=== PATIENT | male | born 1960 | race Caucasian/White ===

== ENCOUNTER 2023-01-31 08:21 | Inpatient (IN) | payer OTHER, MEDICAID ==
[~2023-01-31] VITALS: Ht 157.5 cm; Wt 65.8 kg
[2023-01-31 08:59] VITALS: BP 170/88; PULSE 71; RESP 20; TEMP 98.1; O2SAT 94
[2023-01-31 09:54] LABS: BASOPHILS # (AUTO) 0.1 K/uL (0.00-0.22); BASOPHILS % (AUTO) 1.3 % (0.0-2.0); EOSINOPHILS % (AUTO) 0.4 % (0.0-4.0); HEMATOCRIT 23.7 % (36-52); HEMOGLOBIN 7.9 g/dL (12.0-18.0); LYMPHOCYTES # (AUTO) 0.8 K/uL (2.0-11.5); LYMPHOCYTES % (AUTO) 11.3 % (20.5-51.1); MEAN CORPUSCULAR HEMOGLOBIN 31 pg (27-31); MEAN CORPUSCULAR HGB CONC 33 g/dL (33-37); MEAN CORPUSCULAR VOLUME 92.2 fL (80-94); MONOCYTES # (AUTO) 0.4 K/uL (0.8-1.0); MONOCYTES % (AUTO) 5.4 % (1.7-9.3); NEUTROPHILS % (AUTO) 81.6 % (42.2-75.2); PLATELET COUNT (AUTO) 229 K/uL (140-450); RED BLOOD CELL COUNT(AUTO) 2.57 MIL/uL (4.20-6.10); RED CELL DISTRIBUTION WIDTH 16.4 % (11.6-13.7); WHITE BLOOD COUNT (AUTO) 7.4 K/uL (4.8-10.8)
[2023-01-31 10:14] LABS: ALBUMIN 3.1 g/dL (3.4-5.0); ANION GAP 14.9 (8-16); CARBON DIOXIDE 31.5 mmol/L (21-32); POTASSIUM 4.4 mmol/L (3.5-5.1); TOTAL BILIRUBIN 0.8 mg/dL (0.0-1.0); TOTAL PROTEIN, SERUM 6.6 g/dL (6.4-8.2)
[2023-01-31 10:15] LABS: CREATININE 8.6 mg/dL (0.6-1.3)
[2023-01-31 10:19] LABS: APPEARANCE,URINE CLEAR (CLEAR); BILIRUBIN,URINE NEGATIVE (NEGATIVE); BLOOD, URINE TRACE-I (NEGATIVE); COLOR,URINE YELLOW (YELLOW); LEUKOCYTE ESTERASE ,URINE TRACE (NEGATIVE); NITRITE, URINE NEGATIVE (NEGATIVE); PH,URINE 8.5 (5.0-9.0); PROTEIN,URINE 2+ (NEGATIVE); UGLUCOSE 2+ (NEGATIVE); UROBILINOGEN,URINE 0.2 EU/dL (0.2 - 1)
[2023-01-31 10:30] LABS: BACTERIA,URINE FEW /HPF (None Seen); RBC,URINE 0-5 /HPF (0-5); SQUAMOUS EPITHELIAL CELL,UR 0-3 (FEW) /LPF (0-3 (FEW))
[2023-01-31 10:46] LABS: FLU A ANTIGEN negative (NEGATIVE); FLU B ANTIGEN NEGATIVE (NEGATIVE)
[2023-01-31] MEDS ORDERED: AZITHROMYCIN 500 MG in DEXTROSE 5% 250 ML IV ONE (11:45)
[2023-01-31] MEDS ORDERED: DILTIAZEM 30 MG TAB PO ONE (11:45)
[2023-01-31] MEDS ORDERED: cefTRIAXone 1,000 MG VIAL ONE (11:57)
[2023-01-31] MEDS ORDERED: AZITHROMYCIN 500 MG INJ VIAL IV ONE (11:57)
[2023-01-31] MEDS ORDERED: MAG SULF 2000 MG/WATER PREMIX 50 ML IV PRN (15:25)
[2023-01-31] MEDS ORDERED: LORazepam 2 MG/ML VIAL IVP PRN (15:25)
[2023-01-31] MEDS ORDERED: MORPHINE SULFATE 2 MG/ML SYR IVP PRN (15:25)
[2023-01-31] MEDS ORDERED: ZOLPIDEM 10 MG TAB PO PRN (15:25)
[2023-01-31] MEDS ORDERED: POTASSIUM CHLORIDE 10 MEQ TABER PO PRN (15:25)
[2023-01-31] MEDS ORDERED: ONDANSETRON 4 MG/2 ML VIAL IVP PRN (15:25)
[2023-01-31] MEDS ORDERED: DOCUSATE SODIUM 100 MG GELCAP PO PRN (15:25)
[2023-01-31] MEDS ORDERED: ACETAMINOPHEN 325 MG TAB PO PRN (15:25)
[2023-01-31] MEDS: NIFEdipine 60 MG TABER PO SCH (19:22)
[2023-01-31 20:37] VITALS: BP 200/97; PULSE 81; RESP 21; TEMP 98.6; O2SAT 93
[2023-01-31] MEDS: METOPROLOL 25 MG TAB PO SCH (21:00)
[2023-02-01] VITALS (8 sets, daily range): BP systolic 115–181; BP diastolic 56–87; PULSE 58–76; RESP 16–21; TEMP 97.5–98.4; O2SAT 95–100
[2023-02-01] MEDS: CLONIDINE HYDROCHLORIDE 0.1 MG TAB PO PRN (00:40)
[2023-02-01 07:13] LABS: BASOPHILS % (AUTO) 0.6 % (0.0-2.0); EOSINOPHILS # (AUTO) 0.1 K/uL (0-0.4); EOSINOPHILS % (AUTO) 1.9 % (0.0-4.0); HEMATOCRIT 22.2 % (36-52); HEMOGLOBIN 7.4 g/dL (12.0-18.0); LYMPHOCYTES # (AUTO) 0.9 K/uL (2.0-11.5); LYMPHOCYTES % (AUTO) 15.8 % (20.5-51.1); MEAN CORPUSCULAR HEMOGLOBIN 31 pg (27-31); MEAN CORPUSCULAR HGB CONC 33 g/dL (33-37); MEAN CORPUSCULAR VOLUME 92.5 fL (80-94); MONOCYTES # (AUTO) 0.5 K/uL (0.8-1.0); MONOCYTES % (AUTO) 8.4 % (1.7-9.3); NEUTROPHILS # (AUTO) 4.2 K/uL (1.8-7.7); NEUTROPHILS % (AUTO) 73.3 % (42.2-75.2); PLATELET COUNT (AUTO) 207 K/uL (140-450); RED BLOOD CELL COUNT(AUTO) 2.41 MIL/uL (4.20-6.10); RED CELL DISTRIBUTION WIDTH 16.3 % (11.6-13.7); WHITE BLOOD COUNT (AUTO) 5.8 K/uL (4.8-10.8)
[2023-02-01] MEDS: NIFEdipine 60 MG TABER PO SCH (08:29)
[2023-02-01] MEDS: METOPROLOL 25 MG TAB PO SCH ×2 (08:30→21:05)
[2023-02-01 08:55] LABS: ANION GAP 14.2 (8-16); CALCIUM 8.9 mg/dL (8.5-10.1); CARBON DIOXIDE 29.8 mmol/L (21-32)
[2023-02-01 08:58] LABS: CREATININE 5.7 mg/dL (0.6-1.3)
[2023-02-02] VITALS (7 sets, daily range): BP systolic 127–186; BP diastolic 61–86; PULSE 62–77; RESP 17–20; TEMP 97.5–98.4; O2SAT 95–100
[2023-02-02 07:07] LABS: BASOPHILS # (AUTO) 0.1 K/uL (0.00-0.22); BASOPHILS % (AUTO) 1.1 % (0.0-2.0); EOSINOPHILS # (AUTO) 0.2 K/uL (0-0.4); EOSINOPHILS % (AUTO) 4.1 % (0.0-4.0); HEMOGLOBIN 7.7 g/dL (12.0-18.0); LYMPHOCYTES # (AUTO) 1.1 K/uL (2.0-11.5); LYMPHOCYTES % (AUTO) 21.9 % (20.5-51.1); MEAN CORPUSCULAR HEMOGLOBIN 30 pg (27-31); MEAN CORPUSCULAR HGB CONC 33 g/dL (33-37); MEAN CORPUSCULAR VOLUME 90.8 fL (80-94); MONOCYTES # (AUTO) 0.4 K/uL (0.8-1.0); MONOCYTES % (AUTO) 8.5 % (1.7-9.3); NEUTROPHILS # (AUTO) 3.3 K/uL (1.8-7.7); NEUTROPHILS % (AUTO) 64.4 % (42.2-75.2); PLATELET COUNT (AUTO) 247 K/uL (140-450); RED BLOOD CELL COUNT(AUTO) 2.53 MIL/uL (4.20-6.10); RED CELL DISTRIBUTION WIDTH 16.2 % (11.6-13.7); WHITE BLOOD COUNT (AUTO) 5.1 K/uL (4.8-10.8)
[2023-02-02 07:16] LABS: ANION GAP 16.7 (8-16); CALCIUM 8.6 mg/dL (8.5-10.1); CARBON DIOXIDE 27.4 mmol/L (21-32); POTASSIUM 4.1 mmol/L (3.5-5.1)
[2023-02-02 07:34] LABS: CREATININE 8.3 mg/dL (0.6-1.3)
[2023-02-02] MEDS: METOPROLOL 25 MG TAB PO SCH ×2 (09:05→21:17)
[2023-02-02] MEDS: NIFEdipine 60 MG TABER PO SCH (09:06)
[2023-02-02] MEDS: EPOETIN ALFA 10,000 UNITS/ML VIAL IV SCH ×2 (15:42→15:53)
[2023-02-02] MEDS ORDERED: EPOETIN ALFA-EPBX 4,000 UNITS/ML VIAL SUBQ SCH (16:00)
[2023-02-02] MEDS: CLONIDINE HYDROCHLORIDE 0.1 MG TAB PO PRN (23:59)
[2023-02-03] VITALS (7 sets, daily range): BP systolic 124–202; BP diastolic 67–91; PULSE 64–76; RESP 16–18; TEMP 97–98.2; O2SAT 95–99
[2023-02-03 06:27] LABS: BASOPHILS # (AUTO) 0.1 K/uL (0.00-0.22); BASOPHILS % (AUTO) 1.3 % (0.0-2.0); EOSINOPHILS # (AUTO) 0.2 K/uL (0-0.4); EOSINOPHILS % (AUTO) 3.8 % (0.0-4.0); HEMATOCRIT 22.7 % (36-52); HEMOGLOBIN 7.7 g/dL (12.0-18.0); LYMPHOCYTES # (AUTO) 1.3 K/uL (2.0-11.5); MEAN CORPUSCULAR HEMOGLOBIN 31 pg (27-31); MEAN CORPUSCULAR HGB CONC 34 g/dL (33-37); MEAN CORPUSCULAR VOLUME 90.7 fL (80-94); MONOCYTES # (AUTO) 0.4 K/uL (0.8-1.0); MONOCYTES % (AUTO) 6.8 % (1.7-9.3); NEUTROPHILS # (AUTO) 3.2 K/uL (1.8-7.7); NEUTROPHILS % (AUTO) 62.1 % (42.2-75.2); PLATELET COUNT (AUTO) 251 K/uL (140-450); RED CELL DISTRIBUTION WIDTH 16.1 % (11.6-13.7); WHITE BLOOD COUNT (AUTO) 5.1 K/uL (4.8-10.8)
[2023-02-03 07:02] LABS: ANION GAP 17.3 (8-16); CALCIUM 8.7 mg/dL (8.5-10.1); CARBON DIOXIDE 26.9 mmol/L (21-32); POTASSIUM 4.2 mmol/L (3.5-5.1)
[2023-02-03 07:18] LABS: CREATININE 10.7 mg/dL (0.6-1.3)
[2023-02-03] MEDS: NIFEdipine 60 MG TABER PO SCH (09:00)
[2023-02-03] MEDS: METOPROLOL 25 MG TAB PO SCH (09:00)
[2023-02-03] MEDS: EPOETIN ALFA 10,000 UNITS/ML VIAL IV SCH (12:33)
[2023-02-03] MEDS ORDERED: ASPI-1856 PO (17:17)
[2023-02-03] MEDS ORDERED: DOCU-299 PO (17:17)
[2023-02-03] MEDS ORDERED: CARV12.52 PO (17:17)
[2023-02-03] MEDS ORDERED: ATOR20TA40 PO (17:17)
[2023-02-03] MEDS ORDERED: LOSA-270 PO (17:17)
[2023-02-03] MEDS ORDERED: LOSARTAN 50 MG TAB PO SCH (21:00)
[2023-02-03] MEDS ORDERED: carvediloL 12.5 MG TAB PO SCH (21:00)
[2023-02-04] MEDS ORDERED: ATORVASTATIN 20 MG TAB PO SCH (09:00)
[2023-02-04] MEDS ORDERED: ECOTRIN 81 MG TABEC PO SCH (09:00)
== END 2023-02-03 21:10 | disposition home or self-care (01) | DRG 193 ==
LOC: MED 08:21 → MTU 12:11
PROVIDERS: ADMIT General Practice; ATTEND General Practice
PROC: 5A1D70Z Performance of Urinary Filtration, Intermittent, Less than 6 Hours Per Day (ICD-10-PCS; principal; 2023-01-31)
PROC: 5A1D70Z Performance of Urinary Filtration, Intermittent, Less than 6 Hours Per Day (ICD-10-PCS; 2023-02-03)
DX: J18.9 Pneumonia, unspecified organism (principal); I50.23 Acute on chronic systolic (congestive) heart failure; J96.01 Acute respiratory failure with hypoxia; N18.6 End stage renal disease; I13.2 Hypertensive heart and chronic kidney disease with heart failure and with stage 5 chronic kidney disease, or end stage renal disease; N39.0 Urinary tract infection, site not specified; K21.9 Gastro-esophageal reflux disease without esophagitis; D63.1 Anemia in chronic kidney disease; Z20.822 Contact with and (suspected) exposure to COVID-19; D63.8 Anemia in other chronic diseases classified elsewhere; I25.10 Atherosclerotic heart disease of native coronary artery without angina pectoris; Z99.2 Dependence on renal dialysis; Z91.158 Patient's noncompliance with renal dialysis for other reason; I25.2 Old myocardial infarction; Z86.73 Personal history of transient ischemic attack (TIA), and cerebral infarction without residual deficits
CPT/HCPCS: 36415; 71045; 80048; 80053; 81001; 83036; 83605; 83735; 83880; 84484; 85025; 87040; 87070; 87086; 87205; 93005; 96365; 96367; 99285; J0456; J0696; J0885; J1644; Q0092; Q5106

== ENCOUNTER 2023-07-16 18:34 | Inpatient (IN) | payer OTHER ==
[~2023-07-16] VITALS: Ht 175.3 cm; Wt 102.1 kg
[~2023-07-16 18:34] MED LIST: ASPI-1856 PO; ATOR20TA40 PO; CARV12.52 PO; DOCU-299 PO; LOSA-270 PO
[2023-07-16 18:47] VITALS: BP 131/79; PULSE 84; RESP 18; TEMP 97.3; O2SAT 99
[2023-07-16 19:22] VITALS: O2SAT 95
[2023-07-16 20:12] LABS: BASOPHILS # (AUTO) 0.2 K/uL (0.00-0.22); BASOPHILS % (AUTO) 1.8 % (0.0-2.0); EOSINOPHILS # (AUTO) 0.3 K/uL (0-0.4); EOSINOPHILS % (AUTO) 2.9 % (0.0-4.0); HEMATOCRIT 40.4 % (36-52); HEMOGLOBIN 13.7 g/dL (12.0-18.0); LYMPHOCYTES # (AUTO) 2.4 K/uL (2.0-11.5); LYMPHOCYTES % (AUTO) 28.2 % (20.5-51.1); MEAN CORPUSCULAR HEMOGLOBIN 36 pg (27-31); MEAN CORPUSCULAR HGB CONC 34 g/dL (33-37); MEAN CORPUSCULAR VOLUME 104.3 fL (80-94); MONOCYTES # (AUTO) 0.9 K/uL (0.8-1.0); MONOCYTES % (AUTO) 11.1 % (1.7-9.3); NEUTROPHILS # (AUTO) 4.8 K/uL (1.8-7.7); PLATELET COUNT (AUTO) 294 K/uL (140-450); RED BLOOD CELL COUNT(AUTO) 3.87 MIL/uL (4.20-6.10); RED CELL DISTRIBUTION WIDTH 19.3 % (11.6-13.7); WHITE BLOOD COUNT (AUTO) 8.6 K/uL (4.8-10.8)
[2023-07-16 20:27] LABS: ANION GAP 27.8 (8-16); CALCIUM 10.3 mg/dL (8.5-10.1); CARBON DIOXIDE 20.5 mmol/L (21-32); POTASSIUM 4.3 mmol/L (3.5-5.1)
[2023-07-16 20:29] LABS: CREATININE 12.3 mg/dL (0.6-1.3)
[2023-07-16 20:30] LABS: INR 1.08 (0.8-1.2); PARTIAL THROMBOPLASTIN TIME 35.5 secs (22-35.6); PROTHROMBIN TIME 11.3 secs (10.8-13.4)
[2023-07-16 20:39] LABS: LACTIC ACID 0.7 mmol/L (0.4-2.0)
[2023-07-16 20:42] LABS: ALANINE AMINOTRANSFERASE 25 U/L (12-78); ALBUMIN 3.8 g/dL (3.4-5.0); ALKALINE PHOSPHATASE 82 U/L (50-136); ASPARTATE AMINOTRANSFERASE 29 U/L (15-37); BILIRUBIN,DIRECT 0.1 mg/dL (0.0-0.3); CREATINE KINASE, TOTAL 65 U/L (39-308); LIPASE 40 U/L (16-77); THYROID STIMULATING HORMONE 0.67 uIU/mL (0.34-3.74); TOTAL BILIRUBIN 0.4 mg/dL (0.0-1.0); TOTAL PROTEIN, SERUM 7.9 g/dL (6.4-8.2)
[2023-07-16] MEDS ORDERED: ACETAMINOPHEN 325 MG TAB PO PRN (21:40)
[2023-07-16] MEDS ORDERED: ALBUTEROL 0.083% 2.5 MG/3 ML NEBU INH PRN (21:40)
[2023-07-16] MEDS ORDERED: HYDROcodone/APAP 5/325 MG 1 TAB TAB PO PRN (21:40)
[2023-07-16] MEDS ORDERED: DOCUSATE SODIUM 100 MG GELCAP PO PRN (21:45)
[2023-07-16] MEDS ORDERED: FAMO-90 PO (22:22)
[2023-07-16] MEDS ORDERED: TENA20TA PO (22:22)
[2023-07-16] MEDS ORDERED: MULT-2171 PO (22:22)
[2023-07-16] MEDS ORDERED: CALC667T8 PO (22:22)
[2023-07-16] MEDS ORDERED: SENN-72 PO (22:22)
[2023-07-16] MEDS ORDERED: HYDR100T49 PO (22:22)
[2023-07-16] MEDS ORDERED: APIX5TAB PO (22:22)
[2023-07-16] MEDS ORDERED: METO100T14 PO (22:22)
[2023-07-16] MEDS ORDERED: OMEG100016 PO (22:22)
[2023-07-16 23:34] VITALS: PULSE 80
[2023-07-17] VITALS (9 sets, daily range): BP systolic 83–167; BP diastolic 54–88; PULSE 66–121; RESP 17–20; TEMP 96.4–97.6; O2SAT 97–100
[2023-07-17] MEDS: cefTRIAXone 1,000 MG VIAL ONE (00:11)
[2023-07-17] MEDS ORDERED: DEXTROSE 50% 50 ML SYR IVP PRN (05:30)
[2023-07-17] MEDS: BLOOD GLUCOSE MONITORING 1 DEV DEV FS SCH (07:25)
[2023-07-17] MEDS: LOSARTAN 50 MG TAB PO SCH (08:17)
[2023-07-17] MEDS: carvediloL 12.5 MG TAB PO SCH (08:17)
[2023-07-17] MEDS: ECOTRIN 81 MG TABEC PO SCH (08:17)
[2023-07-17] MEDS: ONDANSETRON 4 MG/2 ML VIAL IVP PRN (08:28)
[2023-07-17] MEDS: ALBUMIN HUMAN 25% 50 ML IV SCH (18:54)
[2023-07-17] MEDS: ATORVASTATIN 20 MG TAB PO SCH (20:32)
[2023-07-17] MEDS: MIDODRINE 5 MG TAB PO SCH (20:33)
[2023-07-17] MEDS ORDERED: MELATONIN 3 MG TAB PO PRN (22:20)
[2023-07-17] MEDS: MELATONIN 3 MG TAB PO PRN (23:01)
[2023-07-18] VITALS (8 sets, daily range): BP systolic 83–136; BP diastolic 41–88; PULSE 72–152; RESP 16–20; TEMP 97.1–98.3; O2SAT 95–100
[2023-07-18 05:22] LABS: BASOPHILS # (AUTO) 0.1 K/uL (0.00-0.22); EOSINOPHILS # (AUTO) 0.2 K/uL (0-0.4); EOSINOPHILS % (AUTO) 1.7 % (0.0-4.0); HEMATOCRIT 36.2 % (36-52); HEMOGLOBIN 12.3 g/dL (12.0-18.0); LYMPHOCYTES # (AUTO) 1.9 K/uL (2.0-11.5); LYMPHOCYTES % (AUTO) 20.1 % (20.5-51.1); MEAN CORPUSCULAR HEMOGLOBIN 36 pg (27-31); MEAN CORPUSCULAR HGB CONC 34 g/dL (33-37); MEAN CORPUSCULAR VOLUME 104.7 fL (80-94); NEUTROPHILS # (AUTO) 6.3 K/uL (1.8-7.7); NEUTROPHILS % (AUTO) 66.2 % (42.2-75.2); PLATELET COUNT (AUTO) 260 K/uL (140-450); RED BLOOD CELL COUNT(AUTO) 3.46 MIL/uL (4.20-6.10); RED CELL DISTRIBUTION WIDTH 19.5 % (11.6-13.7); WHITE BLOOD COUNT (AUTO) 9.5 K/uL (4.8-10.8)
[2023-07-18 05:48] LABS: CALCIUM 10.2 mg/dL (8.5-10.1); CARBON DIOXIDE 30.7 mmol/L (21-32); POTASSIUM 4.7 mmol/L (3.5-5.1)
[2023-07-18 05:52] LABS: CREATININE 9.7 mg/dL (0.6-1.3)
[2023-07-18] MEDS: MIDODRINE 5 MG TAB PO SCH (09:00)
[2023-07-19] VITALS (7 sets, daily range): BP systolic 123–153; BP diastolic 60–80; PULSE 73–100; RESP 16–20; TEMP 97.4–98.3; O2SAT 83–100
[2023-07-19 08:31] LABS: ANION GAP 24.1 (8-16); CALCIUM 9.6 mg/dL (8.5-10.1); CARBON DIOXIDE 26.7 mmol/L (21-32); POTASSIUM 4.8 mmol/L (3.5-5.1)
[2023-07-19 08:41] LABS: CREATININE 11.9 mg/dL (0.6-1.3)
[2023-07-19] MEDS: carvediloL 12.5 MG TAB PO SCH (09:00)
[2023-07-19] MEDS: LOSARTAN 50 MG TAB PO SCH (09:00)
[2023-07-19] MEDS ORDERED: LOVENOX 1MG/KG Q24H SUBQ SCH (15:50)
[2023-07-19] MEDS: ENOXAPARIN 100 MG/ML SYR SUBQ SCH (17:27)
[2023-07-20] VITALS: BP 155/88; PULSE 93; PULSE 98; RESP 18; TEMP 97.2; O2SAT 98
[2023-07-20 04:00] VITALS: BP 146/88; PULSE 78; PULSE 84; RESP 18; TEMP 98.3; O2SAT 99
[2023-07-20 07:14] LABS: BASOPHILS # (AUTO) 0.1 K/uL (0.00-0.22); BASOPHILS % (AUTO) 0.9 % (0.0-2.0); EOSINOPHILS # (AUTO) 0.2 K/uL (0-0.4); EOSINOPHILS % (AUTO) 2.5 % (0.0-4.0); HEMATOCRIT 33.4 % (36-52); HEMOGLOBIN 11.3 g/dL (12.0-18.0); LYMPHOCYTES # (AUTO) 1.4 K/uL (2.0-11.5); LYMPHOCYTES % (AUTO) 22.8 % (20.5-51.1); MEAN CORPUSCULAR HEMOGLOBIN 35 pg (27-31); MEAN CORPUSCULAR HGB CONC 34 g/dL (33-37); MEAN CORPUSCULAR VOLUME 103.7 fL (80-94); MONOCYTES # (AUTO) 0.6 K/uL (0.8-1.0); MONOCYTES % (AUTO) 10.7 % (1.7-9.3); NEUTROPHILS # (AUTO) 3.8 K/uL (1.8-7.7); NEUTROPHILS % (AUTO) 63.1 % (42.2-75.2); PLATELET COUNT (AUTO) 238 K/uL (140-450); RED BLOOD CELL COUNT(AUTO) 3.22 MIL/uL (4.20-6.10); RED CELL DISTRIBUTION WIDTH 19.1 % (11.6-13.7)
[2023-07-20 07:28] LABS: CALCIUM 9.3 mg/dL (8.5-10.1); CARBON DIOXIDE 28.9 mmol/L (21-32); POTASSIUM 3.9 mmol/L (3.5-5.1)
[2023-07-20 07:30] LABS: CREATININE 7.6 mg/dL (0.6-1.3)
[2023-07-20 08:00] VITALS: BP 146/74; PULSE 86; PULSE 92; PULSE 94; RESP 18; RESP 20; TEMP 97.3; O2SAT 96; O2SAT 98
[2023-07-20 12:00] VITALS: BP 138/80; PULSE 80; PULSE 81; RESP 20; TEMP 97.4; O2SAT 98
[2023-07-20 16:00] VITALS: BP 133/76; PULSE 71; RESP 20; TEMP 97.8; O2SAT 100
[2023-07-20 20:00] VITALS: BP 132/74; PULSE 80; PULSE 86; PULSE 94; RESP 18; TEMP 97.9; O2SAT 96; O2SAT 99
[2023-07-21] VITALS: BP 144/81; PULSE 76; RESP 18; TEMP 98.1; O2SAT 99
[2023-07-21 04:00] VITALS: BP 140/90; PULSE 60; PULSE 70; RESP 19; TEMP 98.1; O2SAT 98
[2023-07-21 05:13] LABS: BASOPHILS # (AUTO) 0.1 K/uL (0.00-0.22); BASOPHILS % (AUTO) 1.2 % (0.0-2.0); EOSINOPHILS # (AUTO) 0.1 K/uL (0-0.4); EOSINOPHILS % (AUTO) 2.3 % (0.0-4.0); HEMATOCRIT 30.4 % (36-52); HEMOGLOBIN 10.6 g/dL (12.0-18.0); LYMPHOCYTES # (AUTO) 1.2 K/uL (2.0-11.5); MEAN CORPUSCULAR HEMOGLOBIN 36 pg (27-31); MEAN CORPUSCULAR HGB CONC 35 g/dL (33-37); MEAN CORPUSCULAR VOLUME 102.5 fL (80-94); MONOCYTES # (AUTO) 0.7 K/uL (0.8-1.0); MONOCYTES % (AUTO) 10.8 % (1.7-9.3); NEUTROPHILS # (AUTO) 4.2 K/uL (1.8-7.7); NEUTROPHILS % (AUTO) 66.7 % (42.2-75.2); PLATELET COUNT (AUTO) 201 K/uL (140-450); RED BLOOD CELL COUNT(AUTO) 2.97 MIL/uL (4.20-6.10); RED CELL DISTRIBUTION WIDTH 18.6 % (11.6-13.7); WHITE BLOOD COUNT (AUTO) 6.2 K/uL (4.8-10.8)
[2023-07-21 05:42] LABS: ANION GAP 16.8 (8-16); CALCIUM 9.4 mg/dL (8.5-10.1); CARBON DIOXIDE 28.9 mmol/L (21-32); CREATININE 9.8 mg/dL (0.6-1.3); POTASSIUM 4.7 mmol/L (3.5-5.1)
[2023-07-21 08:00] VITALS: BP 156/89; PULSE 68; PULSE 86; PULSE 94; RESP 18; TEMP 96.8; O2SAT 100; O2SAT 96
[2023-07-21 12:00] VITALS: BP 151/81; PULSE 74; PULSE 76; RESP 18; TEMP 98
[2023-07-21 16:00] VITALS: BP 102/7; PULSE 78; RESP 18; TEMP 98.5; O2SAT 97
[2023-07-21] MEDS: INSULIN LISPRO SLIDING SCALE 100 UNITS/ML VIAL SUBQ PRN (16:37)
[2023-07-21 20:00] VITALS: BP 110/70; PULSE 98; RESP 18; TEMP 97.9; O2SAT 100
[2023-07-22] VITALS (7 sets, daily range): BP systolic 110–132; BP diastolic 56–90; PULSE 74–92; RESP 18–19; TEMP 96.8–98.2; O2SAT 99–100
[2023-07-22 05:23] LABS: BASOPHILS # (AUTO) 0.1 K/uL (0.00-0.22); BASOPHILS % (AUTO) 1.4 % (0.0-2.0); EOSINOPHILS # (AUTO) 0.1 K/uL (0-0.4); EOSINOPHILS % (AUTO) 1.7 % (0.0-4.0); HEMOGLOBIN 10.9 g/dL (12.0-18.0); LYMPHOCYTES # (AUTO) 1.7 K/uL (2.0-11.5); LYMPHOCYTES % (AUTO) 22.8 % (20.5-51.1); MEAN CORPUSCULAR HEMOGLOBIN 36 pg (27-31); MEAN CORPUSCULAR HGB CONC 35 g/dL (33-37); MEAN CORPUSCULAR VOLUME 102.9 fL (80-94); MONOCYTES # (AUTO) 0.8 K/uL (0.8-1.0); MONOCYTES % (AUTO) 11.1 % (1.7-9.3); NEUTROPHILS # (AUTO) 4.7 K/uL (1.8-7.7); PLATELET COUNT (AUTO) 207 K/uL (140-450); RED BLOOD CELL COUNT(AUTO) 3.01 MIL/uL (4.20-6.10); RED CELL DISTRIBUTION WIDTH 18.8 % (11.6-13.7); WHITE BLOOD COUNT (AUTO) 7.5 K/uL (4.8-10.8)
[2023-07-22 05:50] LABS: ANION GAP 17.5 (8-16); CALCIUM 9.3 mg/dL (8.5-10.1); CARBON DIOXIDE 26.8 mmol/L (21-32); POTASSIUM 4.3 mmol/L (3.5-5.1)
[2023-07-22 05:57] LABS: CREATININE 7.9 mg/dL (0.6-1.3)
== END 2023-07-22 18:30 | disposition home or self-care (01) | DRG 70 ==
LOC: MED 18:34 → MTU 21:41
PROVIDERS: ADMIT Family Medicine; ATTEND Family Medicine
PROC: 5A1D70Z Performance of Urinary Filtration, Intermittent, Less than 6 Hours Per Day (ICD-10-PCS; principal; 2023-07-17)
PROC: 5A1D70Z Performance of Urinary Filtration, Intermittent, Less than 6 Hours Per Day (ICD-10-PCS; 2023-07-19)
PROC: 5A1D70Z Performance of Urinary Filtration, Intermittent, Less than 6 Hours Per Day (ICD-10-PCS; 2023-07-21)
DX: G93.41 Metabolic encephalopathy (principal); I21.A1 Myocardial infarction type 2; N18.6 End stage renal disease; I12.0 Hypertensive chronic kidney disease with stage 5 chronic kidney disease or end stage renal disease; I48.0 Paroxysmal atrial fibrillation; I25.10 Atherosclerotic heart disease of native coronary artery without angina pectoris; E11.22 Type 2 diabetes mellitus with diabetic chronic kidney disease; I95.3 Hypotension of hemodialysis; G35 Multiple sclerosis; Z99.2 Dependence on renal dialysis; Z86.73 Personal history of transient ischemic attack (TIA), and cerebral infarction without residual deficits; Z79.899 Other long term (current) drug therapy
CPT/HCPCS: 36415; 70450; 71045; 80048; 80076; 82140; 82550; 82948; 83605; 83690; 83880; 84439; 84443; 84484; 85025; 85610; 85730; 87040; 87081; 90935; 93005; 97110; 97112; 97116; 97163-GP; 97530; 99291; J0696; J1644; J1650; J1815; J2405; J7060; P9046